=== PATIENT | female | born 1975 | race Caucasian/White ===

== ENCOUNTER 2021-10-15 08:00 | Outpatient (RCR) | payer OTHER, SELFPAY ==
[2021-09-24 08:15] VITALS: BP 161/92; PULSE 87; RESP 18; TEMP 35.9; BMI 36.1
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
[2021-10-01 07:55] VITALS: BP 146/114; PULSE 111; RESP 20; TEMP 37; BMI 36.1
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
[2021-10-08 08:48] VITALS: BP 151/101; PULSE 95; RESP 20; TEMP 36.2; BMI 36.1
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
[2021-10-15 08:03] VITALS: BP 148/95; PULSE 92; RESP 16; TEMP 36.3; BMI 36.1
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
== END 2021-10-15 23:59 ==
LOC: WC 08:00
PROVIDERS: PCP Family Medicine; Visit Provider Surgery
DX: L97.212 Non-pressure chronic ulcer of right calf with fat layer exposed (principal); L08.9 Local infection of the skin and subcutaneous tissue, unspecified; S81.831S Puncture wound without foreign body, right lower leg, sequela; V86.55XS Driver of 3- or 4- wheeled all-terrain vehicle (ATV) injured in nontraffic accident, sequela; D86.9 Sarcoidosis, unspecified; K58.9 Irritable bowel syndrome, unspecified; K21.9 Gastro-esophageal reflux disease without esophagitis; Z79.51 Long term (current) use of inhaled steroids; Z79.899 Other long term (current) drug therapy; E66.9 Obesity, unspecified; Z68.36 Body mass index [BMI] 36.0-36.9, adult; Z87.891 Personal history of nicotine dependence
CPT/HCPCS: 11042; 87070; 87075; 87205; 99213; G0463

== ENCOUNTER 2021-11-12 08:00 | Outpatient (RCR) | payer OTHER, SELFPAY ==
[2021-10-16 00:37] VITALS: BP 148/95; PULSE 92; RESP 16; TEMP 36.3; BMI 36.1
[2021-10-22 08:05] VITALS: BP 158/91; PULSE 89; RESP 18; TEMP 35.8; BMI 36.1
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
[2021-10-29 08:06] VITALS: BP 153/91; PULSE 92; RESP 16; TEMP 36.8; BMI 36.1
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
[2021-11-05 08:04] VITALS: BP 154/93; PULSE 74; TEMP 35.9; BMI 36.1
--- NOTE | 2021-11-05 09:05 | PCM.WC.HP ---
History of Present Illness Date of Service: 11/05/21 Chief Complaint: Traumatic penetrating wound to the right medial calf History of Wound: This is a 46-year-old generally healthy 46-year-old female who was involved in a [place] lag[place] accident approximately 2 months prior to initial presentation. She sustained a penetrating injury to the medial aspect of her right calf. She had been using Bactroban topically, but the wound failed to heal appropriately. She had recently been placed on a course of oral clindamycin. X-rays at the time of her injury were said to be negative. [facility] Medical History GERD (gastroesophageal reflux disease) Irritable bowel syndrome Non-pressure chronic ulcer of right calf with fat layer exposed Sarcoidosis Traumatic open wound of right lower leg with delayed healing Wound infection, posttraumatic Home Medications albuterol mcg INHALATION PRN PRN 09/24/21 [History Last Taken Unknown] carbidopa-levodopa QHS 09/24/21 [History Last Taken Unknown] citalopram [Celexa] 20 mg PO DAILY 09/24/21 [History Last Taken Unknown] fluticasone propion-salmeterol [Advair HFA] 2 puff INHALATION Q12H 09/24/21 [History Last Taken Unknown] Allergy/AdvReac Type Severity Reaction Status Date / Time hydromorphone [From Dilaudid] Allergy Hives Verified 09/24/21 08:39 Surgical History no surgical history Social History Smoking Status: Former smoker Vital Signs Vital Signs Vital Signs: 11/05/21 08:04 Temperature 96.6 F L Temperature Source Temporal Pulse Rate 74 Blood Pressure 154/93 H Blood Pressure Mean 113 Blood Pressure Source Monitor Blood Pressure Position Sitting Blood Pressure Location Left Arm Weight Weight: 245 lb 2.12 oz Body Mass Index (BMI) 36.1 Physical Exam Const alert, oriented x3, no apparent distress and well nourished General Appearance: cooperative and well developed Orientation / Consciousness: awake, oriented to person, oriented to place and oriented to time HEENT normocephalic and head/scalp atraumatic Head and Scalp: normal to inspection, normocephalic and atraumatic External Ear: external ears normal Eyes PERRL and EOMs intact bilaterally General Eye: normal appearance of both eyes Resp normal respiratory effort, normal air movement, no retractions and no use of accessory muscles Effort and Inspection: able to speak in complete sentences Extremity no calf tenderness General Extremity: Negative for clubbing or cyanosis Skin Wound Narrative: The wound on the right medial calf persists. A small amount of associated erythema persists. Dimensions are documented elsewhere. There is a moderate amount of bioburden. No significant swelling is noted in the lower extremities. Neuro oriented x3, CN's II-XII intact bilaterally and moves all extremities Sensorium / Orientation: awake, alert, oriented to person, oriented to place and oriented to time Psych Appearance: grossly normal and appropriate Attitude: calm Activity / Motor Behavior: appropriate eye contact Speech: normal speech Mood & Affect: euthymic mood Thought Process: normal thought process Thought Content: normal thought content Attention / Concentration: attention grossly intact Debridement Note Debridement Note Wound debrided: Right medial calf Laterality: Right Type of Debridement: Excisional debridement Anesthesia Used: 5% Lidocaine Gel Depth: Down to and including healthy tissue and in the subcutaneous layer Percentage of wound debrided: 100 Instrument Used: 3mm curette Tissue Removed: Bioburden Severity: Fat Layer Exposed Amount of bleeding with debridement: Mild Bleeding Controlled with: Compression and gauze Patient tolerated procedure: Patient tolerated procedure well Post-Debridement Measurements and Additional Note: Post-Debridement Measurements/Treatment - Nurse 1 - General Ulcer Assessment Start: 10/22/21 08:05 Freq: Status: Active Protocol: SRAVAN.SENA Activity Type Activity Date Activity User E-Sign Co-Sign Detail Recorded Client Recorded Date Recorded By Document 10/22/21 08:05 DL [id number] 10/22/21 08:08 DL Document 10/29/21 08:06 BM [id number] 10/29/21 08:08 BMF Document 11/05/21 08:04 KR [id number] 11/05/21 08:08 KR 10/22/21 10/29/21 11/05/21 08:05 08:06 08:04 - Today's Visit Information Type of service Follow-up Visit Follow-up Visit Follow-up Visit (Physician/HEALTH INFORMATION TECH (Physician/HEALTH INFORMATION TECH (Physician/HEALTH INFORMATION TECH ) ) ) Arrival Mode Ambulatory Ambulatory Ambulatory Transfer Assistance None None Patient Identification Verified (Name & Yes Yes Yes ) Patient Requires Transmission-Based No No Precautions Height and Weight Body Mass Index (BMI) 36.1 36.1 36.1 BMI Classification Obese Obese Obese Vital Signs Temperature (97.8 F-99.1 F) 96.5 F L 98.2 F 96.6 F L Temperature Source Temporal Temporal Temporal Pulse Rate (60-100) 89 92 74 Pulse Location Monitor Monitor Monitor Respiratory Rate (12-18) 18 16 Respiratory rate source Observation Observation Oxygen Delivery Method Room Air Blood Pressure (90/60-120/80) 158/91 H 153/91 H 154/93 H Blood Pressure Mean 113 111 113 Source Monitor Monitor Monitor Position Sitting Sitting Blood Pressure Location Right Arm Left Arm History Since Last Visit- (Skip if this is Patient's initial visit) Have you changed medications since your No No No last visit? Any new allergies or adverse reactions No No No Had a fall/change in ADL's that may No No No increase risk of falls Signs or symptoms of abuse and/or No No No neglect since last visit Have you been in the hospital since your No No No last visit? Has dressing in place as prescribed Yes Yes Yes Has compression in place as prescribed Yes Yes Yes Has offloadiing in place as prescribed N/A N/A N/A Experienced any changes in pain level or No No No management Left Footwear Regular Shoe Regular Shoe Right Footwear Regular Shoe Regular Shoe Pain Scale: 0-10 Numeric Is Patient Pain Free? Yes Yes WC - Nurse 1 - General Ulcer Measurement Start: 10/22/21 08:05 Freq: Status: Active Protocol: Activity Type Activity Date Activity User E-Sign Co-Sign Detail Recorded Client Recorded Date Recorded By Document 10/22/21 08:05 DL [id number] 10/22/21 08:08 DL Document 10/29/21 08:06 BM [id number] 10/29/21 08:08 BMF Document 11/05/21 08:04 KR [id number] 11/05/21 08:08 KR 10/22/21 10/29/21 11/05/21 08:05 08:06 08:04 Wound Center Nurse 1 #1 R Med LE -Combined with other wound No -Current Size (cm) - Length 2.4 2.4 2.3 -Current Size (cm) - Width 0.6 1.4 0.7 -Current Size (cm) - Depth 0.3 0.2 0.2 -Total Square Cm 1.44 3.36 1.61 -Photo Taken No No -Epithelialization None Present -Tunneling No -Undermining/Tunneling No -Circular Undermining No -Exudate Amt Small Medium Small -Exudate Type Serosanguineous Serosanguineous Serosanguineous -Wound Margin Distinct, Distinct, Distinct, Outline Outline Outline Attached Attached Attached -Granulation Amt Small (1-33%) Small (1-33%) Medium (34-66%) -Granulation Quality [place] -Slough/Fibrin Yes -Necrosis Amt Large (67-100%) Medium (34-66%) Medium (34-66%) -Necrotic Tissue Type Adherent Slough Adherent Slough Adherent Slough -Structure Exposed N/A -Texture (Coret[place]-wound Skin Appearance) Excoriation, Assessed, Assessed, Scarring Scarring Scarring -Moisture ([place]oret[place]-wound Skin Appearance) Dry/Scaly Assessed,Dry/ Assessed,Dry/ Scaly Scaly -Color ([place]oret[place]-wound Skin Appearance) No Abnormality Assessed No Abnormality, Assessed -Temperature ([place]-wound Skin No Abnormality No Abnormality No Abnormality Appearance) (Pt Warm) (Pt Warm) (Pt Warm) -Tenderness on Palpation ([place]-wound No No No Skin Appearance) -Ulcer Cleansing Rinsed/ Rinsed/ Rinsed/ Irrigated with Irrigated with Irrigated with Saline Saline Saline -Foul Odor after Cleansing No No -Anesthetic Used 4% Lidocaine 5% Lidocaine 4% Lidocaine Solution Gel Solution Lower Limb Edema Present Yes Right Calf (cm) 42 41.3 46.5 Right Ankle (cm) 21 22.5 24.7 WC - Nurse 2 - General Ulcer CM Notes Start: 10/22/21 08:05 Freq: Status: Active Protocol: Activity Type Activity Date Activity User E-Sign Co-Sign Detail Recorded Client Recorded Date Recorded By Document 10/22/21 08:25 PL [id number] 10/22/21 08:27 PL Document 10/29/21 08:34 PL [id number] 10/29/21 08:36 PL 10/22/21 10/29/21 08:25 08:34 Wound Center Nurse 2 #1 R Med LE -Time 08:15 08:19 -Correct Patient Yes Yes -Correct Side, Site, Position Yes Yes -Correct Procedure Yes Yes -Procedure Performed Yes Yes -Type of Procedure Debridement Debridement -Clinical Debridement Subcutaneous Subcutaneous -Tissue Removed Subcutaneous Subcutaneous -Post Debridement (cm) - Length 2.4 2.4 -Post Debridement (cm) - Width 0.6 1.4 -Post Debridement (cm) - Depth 0.3 0.2 -Total Square (Post) (cm) 1.44 3.36 -Area of Debridement (cm) - Length 2.4 2.4 -Area of Debridement (cm) - Width 0.6 1.4 -Total Square (Area) (cm) 1.44 3.36 -Tunneling No No -Undermining/Tunneling No No -Circular Undermining No No -Wound/Ulcer Outcome Not Healed Not Healed -Ulcer Cleansing Rinsed/ Rinsed/ Irrigated with Irrigated with Saline Saline -Foul Odor after Cleansing No No -Bioengineered Tissue No No -Bleeding Controlled with Pressure Pressure -Treatment Response Procedure Procedure Tolerated Well Tolerated Well -Debridement - Subq, 1st 20sq cm Yes Yes - Nurse 3 - General Ulcer D/C NN Start: 10/22/21 08:05 Freq: Status: Active Protocol: Activity Type Activity Date Activity User E-Sign Co-Sign Detail Recorded Client Recorded Date Recorded By Document 10/22/21 08:38 [facility] [id number] 10/22/21 08:41 [facility] Document 10/29/21 08:29 [facility] [id number] 10/29/21 08:30 [facility] 10/22/21 10/29/21 08:38 08:29 Wound Care Nurse 3 #1 R Med LE -Ulcer Cleansing Rinsed/ Rinsed/ Irrigated with Irrigated with Saline Saline -Foul Odor after Cleansing No No -Primary Dressing Applied Other C Hydrogel ($), Other -Other Dressing promogran promogran -Primary Dressing Covered/Secured with Dry Gauze & Dry Gauze & Roll Gauze, Roll Gauze, Secured with Secured with Tape Tape -Other Covering drsg per mw rn Right -Other pts own applied pts own compression single layer applied tubi Treatment Response Procedure Procedure Tolerated Well Tolerated Well Pain Scale: 0-10 Numeric Is Patient Pain Free? Yes Yes - Visit Discharge Discharge Condition Stable Stable Ambulatory Status Ambulatory Ambulatory Transportation Private Auto Private Auto Assessment/Plan Assessment/Plan (1) Traumatic open wound of right lower leg with delayed healing: CODE(S): S81.801D - Unspecified open wound, right lower leg, subsequent encounter (2) Non-pressure chronic ulcer of right calf with fat layer exposed: CODE(S): L97.212 - Non-pressure chronic ulcer of right calf with fat layer exposed (3) GERD (gastroesophageal reflux disease): CODE(S): K21.9 - Gastro-esophageal reflux disease without esophagitis (4) Wound infection, posttraumatic: CODE(S): T14.8XXA - Other injury of unspecified body region, initial encounter; L08.9 - Local infection of the skin and subcutaneous tissue, unspecified (5) Irritable bowel syndrome: CODE(S): K58.9 - Irritable bowel syndrome without diarrhea (6) Sarcoidosis: CODE(S): D86.9 - Sarcoidosis, unspecified PLAN: This is a 46-year-old generally healthy white female who sustained a traumatic injury to her right medial calf approximately 2 months prior to her initial presentation. The wound failed to heal appropriately. Because the patient indicated that the wound bed generally appeared dry with each dressing change, we implemented the use of collagen hydrogel in association with the Promogran which was applied topically on a daily basis. This is to be continued. She has been instructed in appropriate means of application. It should be noted that the patient recently vacationed in [facility], but forgot to take her oral antibiotic with her on the trip. As result, she has not been taking the Keflex 500 mg p.o. twice daily as prescribed empirically on her last visit. This is to be resumed. In addition, upon her return to [place], the patient forgot her collagen hydrogel, leaving it in [place]. As result, she has not been applying collagen hydrogel in association with her Promogran each day. Patient has been provided collagen hydrogel today, and the combination of collagen hydrogel and Promogran is to be resumed topically on a daily basis henceforth. We had considered the use of a skin substitute, but preauthorization was denied by the patient's insurance company. Wound cultures have been obtained by swab, for both aerobic and anaerobic bacterial growth. Results were negative. As mentioned, because of the persisting periwound erythema, suspicious for cellulitis, we are empirically treating the patient with Keflex 500 mg p.o. twice daily for 1 week. The patient is to return in 1 week for reassessment. Total time: 29 minutes
[2021-11-12 08:02] VITALS: BP 158/79; PULSE 90; RESP 16; BMI 36.1
--- NOTE | 2021-11-12 09:34 | HP.PCM_ITS ---
History of Present Illness Date of Service: 11/12/21 Chief Complaint: Traumatic penetrating wound to the right medial calf History of Wound: This is a 46-year-old generally healthy 46-year-old female who was involved in a [employer] laguna accident approximately 2 months prior to initial presentation. She sustained a penetrating injury to the medial aspect of her right calf. She had been using Bactroban topically, but the wound failed to heal appropriately. She had recently been placed on a course of oral clindamycin. X-rays at the time of her injury were said to be negative. [facility] Medical History GERD (gastroesophageal reflux disease) Irritable bowel syndrome Non-pressure chronic ulcer of right calf with fat layer exposed Sarcoidosis Traumatic open wound of right lower leg with delayed healing Wound infection, posttraumatic Home Medications albuterol mcg INHALATION PRN PRN 09/24/21 [History Last Taken Unknown] carbidopa-levodopa QHS 09/24/21 [History Last Taken Unknown] citalopram [Celexa] 20 mg PO DAILY 09/24/21 [History Last Taken Unknown] fluticasone propion-salmeterol [Advair HFA] 2 puff INHALATION Q12H 09/24/21 [History Last Taken Unknown] Allergy/AdvReac Type Severity Reaction Status Date / Time hydromorphone [From Dilaudid] Allergy Hives Verified 09/24/21 08:39 Surgical History no surgical history Social History Smoking Status: Former smoker Vital Signs Vital Signs Vital Signs: 11/12/21 08:02 Pulse Rate 90 Respiratory Rate 16 Blood Pressure 158/79 H Blood Pressure Mean 105 Blood Pressure Source Monitor Blood Pressure Position Sitting Blood Pressure Location Left Arm Oxygen Delivery Method Room Air Weight Weight: 245 lb 2.12 oz Body Mass Index (BMI) 36.1 Physical Exam Const alert, oriented x3, no apparent distress and well nourished General Appearance: cooperative and well developed Orientation / Consciousness: awake, oriented to person, oriented to place and oriented to time HEENT normocephalic and head/scalp atraumatic Head and Scalp: normal to inspection, normocephalic and atraumatic External Ear: external ears normal Eyes PERRL and EOMs intact bilaterally General Eye: normal appearance of both eyes Resp normal respiratory effort, normal air movement, no retractions and no use of accessory muscles Effort and Inspection: able to speak in complete sentences Extremity no calf tenderness General Extremity: Negative for clubbing or cyanosis Skin Wound Narrative: No swelling or edema are noted in the patient's right lower extremity. Ulceration on the right medial calf is smaller, demonstrating improvement. There is no sign of infection or cellulitis. There is a small amount of bioburden. Dimensions are documented elsewhere. Neuro oriented x3, CN's II-XII intact bilaterally and moves all extremities Sensorium / Orientation: awake, alert, oriented to person, oriented to place and oriented to time Psych Appearance: grossly normal and appropriate Attitude: calm Activity / Motor Behavior: appropriate eye contact Speech: normal speech Mood & Affect: euthymic mood Thought Process: normal thought process Thought Content: normal thought content Attention / Concentration: attention grossly intact Debridement Note Debridement Note Wound debrided: Right medial calf Laterality: Right Type of Debridement: Excisional debridement Anesthesia Used: 5% Lidocaine Gel Depth: Down to and including healthy tissue and in the subcutaneous layer Percentage of wound debrided: 100 Instrument Used: 3mm curette Tissue Removed: Bioburden Severity: Fat Layer Exposed Amount of bleeding with debridement: Mild Bleeding Controlled with: Compression and gauze Patient tolerated procedure: Patient tolerated procedure well Post-Debridement Measurements and Additional Note: Post-Debridement Measurements/Treatment - Nurse 1 - General Ulcer Assessment Start: 10/22/21 08:05 Freq: Status: Active Protocol: JODY Activity Type Activity Date Activity User E-Sign Co-Sign Detail Recorded Client Recorded Date Recorded By Document 10/22/21 08:05 DL [id number] 10/22/21 08:08 DL Document 10/29/21 08:06 [facility] [id number] 10/29/21 08:08 BMF Document 11/05/21 08:04 KR [id number] 11/05/21 08:08 KR Document 11/12/21 08:02 BM [id number] 11/12/21 08:06 BM 10/22/21 10/29/21 11/05/21 08:05 08:06 08:04 - Today's Visit Information Type of service Follow-up Visit Follow-up Visit Follow-up Visit (Physician/[employer] (Physician/[employer] (Physician/[employer] ) ) ) Arrival Mode Ambulatory Ambulatory Ambulatory Transfer Assistance None None Patient Identification Verified (Name & Yes Yes Yes ) Patient Requires Transmission-Based No No Precautions Height and Weight Body Mass Index (BMI) 36.1 36.1 36.1 BMI Classification Obese Obese Obese Vital Signs Temperature (97.8 F-99.1 F) 96.5 F L 98.2 F 96.6 F L Temperature Source Temporal Temporal Temporal Pulse Rate (60-100) 89 92 74 Pulse Location Monitor Monitor Monitor Respiratory Rate (12-18) 18 16 Respiratory rate source Observation Observation Oxygen Delivery Method Room Air Blood Pressure (90/60-120/80) 158/91 H 153/91 H 154/93 H Blood Pressure Mean 113 111 113 Source Monitor Monitor Monitor Position Sitting Sitting Blood Pressure Location Right Arm Left Arm History Since Last Visit- (Skip if this is Patient's initial visit) Have you changed medications since your No No No last visit? Any new allergies or adverse reactions No No No Had a fall/change in ADL's that may No No No increase risk of falls Signs or symptoms of abuse and/or No No No neglect since last visit Have you been in the hospital since your No No No last visit? Has dressing in place as prescribed Yes Yes Yes Has compression in place as prescribed Yes Yes Yes Has offloadiing in place as prescribed N/A N/A N/A Experienced any changes in pain level or No No No management Left Footwear Regular Shoe Regular Shoe Right Footwear Regular Shoe Regular Shoe Pain Scale: 0-10 Numeric Is Patient Pain Free? Yes Yes 11/12/21 08:02 - Today's Visit Information Type of service Follow-up Visit (Physician/[employer] ) Arrival Mode Ambulatory Transfer Assistance None Patient Identification Verified (Name & Yes ) Patient Requires Transmission-Based No Precautions Height and Weight Body Mass Index (BMI) 36.1 BMI Classification Obese Vital Signs Temperature (97.8 F-99.1 F) Temperature Source Pulse Rate (60-100) 90 Pulse Location Monitor Respiratory Rate (12-18) 16 Respiratory rate source Observation Oxygen Delivery Method Room Air Blood Pressure (90/60-120/80) 158/79 H Blood Pressure Mean 105 Source Monitor Position Sitting Blood Pressure Location Left Arm History Since Last Visit- (Skip if this is Patient's initial visit) Have you changed medications since your No last visit? Any new allergies or adverse reactions No Had a fall/change in ADL's that may No increase risk of falls Signs or symptoms of abuse and/or No neglect since last visit Have you been in the hospital since your No last visit? Has dressing in place as prescribed Yes Has compression in place as prescribed No Has offloadiing in place as prescribed N/A Experienced any changes in pain level or No management Left Footwear Regular Shoe Right Footwear Regular Shoe Pain Scale: 0-10 Numeric Is Patient Pain Free? Yes WC - Nurse 1 - General Ulcer Measurement Start: 10/22/21 08:05 Freq: Status: Active Protocol: Activity Type Activity Date Activity User E-Sign Co-Sign Detail Recorded Client Recorded Date Recorded By Document 10/22/21 08:05 DL [id number] 10/22/21 08:08 DL Document 10/29/21 08:06 BM [id number] 10/29/21 08:08 BMF Document 11/05/21 08:04 KR [id number] 11/05/21 08:08 KR Document 11/12/21 08:02 BMF [id number] 11/12/21 08:06 BMF 10/22/21 10/29/21 11/05/21 08:05 08:06 08:04 Wound Center Nurse 1 #1 R Med LE -Combined with other wound No -Current Size (cm) - Length 2.4 2.4 2.3 -Current Size (cm) - Width 0.6 1.4 0.7 -Current Size (cm) - Depth 0.3 0.2 0.2 -Total Square Cm 1.44 3.36 1.61 -Photo Taken No No -Epithelialization None Present -Tunneling No -Undermining/Tunneling No -Circular Undermining No -Exudate Amt Small Medium Small -Exudate Type Serosanguineous Serosanguineous Serosanguineous -Wound Margin Distinct, Distinct, Distinct, Outline Outline Outline Attached Attached Attached -Granulation Amt Small (1-33%) Small (1-33%) Medium (34-66%) -Granulation Quality [place] -Slough/Fibrin Yes -Necrosis Amt Large (67-100%) Medium (34-66%) Medium (34-66%) -Necrotic Tissue Type Adherent Slough Adherent Slough Adherent Slough -Structure Exposed N/A -Texture (Coretta-wound Skin Appearance) Excoriation, Assessed, Assessed, Scarring Scarring Scarring -Moisture (Coretta-wound Skin Appearance) Dry/Scaly Assessed,Dry/ Assessed,Dry/ Scaly Scaly -Color (Coretta-wound Skin Appearance) No Abnormality Assessed No Abnormality, Assessed -Temperature (Coretta-wound Skin No Abnormality No Abnormality No Abnormality Appearance) (Pt Warm) (Pt Warm) (Pt Warm) -Tenderness on Palpation (Coretta-wound No No No Skin Appearance) -Ulcer Cleansing Rinsed/ Rinsed/ Rinsed/ Irrigated with Irrigated with Irrigated with Saline Saline Saline -Foul Odor after Cleansing No No -Anesthetic Used 4% Lidocaine 5% Lidocaine 4% Lidocaine Solution Gel Solution Lower Limb Edema Present Yes Right Calf (cm) 42 41.3 46.5 Right Ankle (cm) 21 22.5 24.7 11/12/21 08:02 Wound Center Nurse 1 #1 R Med LE -Combined with other wound No -Current Size (cm) - Length 2.3 -Current Size (cm) - Width 1.3 -Current Size (cm) - Depth 0.2 -Total Square Cm 2.99 -Photo Taken No -Epithelialization Small 1-33% -Tunneling No -Undermining/Tunneling No -Circular Undermining No -Exudate Amt Medium -Exudate Type Serosanguineous -Wound Margin Distinct, Outline Attached -Granulation Amt Medium (34-66%) -Granulation Quality [place] -Slough/Fibrin Yes -Necrosis Amt Medium (34-66%) -Necrotic Tissue Type Adherent Slough -Structure Exposed -Texture (Coretta-wound Skin Appearance) Assessed, Scarring -Moisture (Coretta-wound Skin Appearance) Assessed -Color (Coretta-wound Skin Appearance) Assessed -Temperature (Coretta-wound Skin No Abnormality Appearance) (Pt Warm) -Tenderness on Palpation (Coretta-wound No Skin Appearance) -Ulcer Cleansing Rinsed/ Irrigated with Saline -Foul Odor after Cleansing No -Anesthetic Used 5% Lidocaine Gel Lower Limb Edema Present Yes Right Calf (cm) 44.5 Right Ankle (cm) 22.5 WC - Nurse 2 - General Ulcer CM Notes Start: 10/22/21 08:05 Freq: Status: Active Protocol: Activity Type Activity Date Activity User E-Sign Co-Sign Detail Recorded Client Recorded Date Recorded By Document 10/22/21 08:25 PL [id number] 10/22/21 08:27 PL Document 10/29/21 08:34 PL [id number] 10/29/21 08:36 PL Document 11/05/21 09:24 PL [id number] 11/05/21 09:25 PL Document 11/12/21 09:17 PL [id number] 11/12/21 09:18 PL 10/22/21 10/29/21 11/05/21 08:25 08:34 09:24 Wound Center Nurse 2 #1 R Med LE -Time 08:15 08:19 08:25 -Correct Patient Yes Yes Yes -Correct Side, Site, Position Yes Yes Yes -Correct Procedure Yes Yes Yes -Procedure Performed Yes Yes Yes -Type of Procedure Debridement Debridement Debridement -Clinical Debridement Subcutaneous Subcutaneous Subcutaneous -Tissue Removed Subcutaneous Subcutaneous Subcutaneous -Post Debridement (cm) - Length 2.4 2.4 2.3 -Post Debridement (cm) - Width 0.6 1.4 0.7 -Post Debridement (cm) - Depth 0.3 0.2 0.2 -Total Square (Post) (cm) 1.44 3.36 1.61 -Area of Debridement (cm) - Length 2.4 2.4 2.3 -Area of Debridement (cm) - Width 0.6 1.4 0.7 -Total Square (Area) (cm) 1.44 3.36 1.61 -Tunneling No No No -Undermining/Tunneling No No No -Circular Undermining No No No -Wound/Ulcer Outcome Not Healed Not Healed Not Healed -Ulcer Cleansing Rinsed/ Rinsed/ Rinsed/ Irrigated with Irrigated with Irrigated with Saline Saline Saline -Foul Odor after Cleansing No No No -Bioengineered Tissue No No No -Bleeding Controlled with Pressure Pressure -Treatment Response Procedure Procedure Tolerated Well Tolerated Well -Debridement - Subq, 1st 20sq cm Yes Yes Yes 11/12/21 09:17 Wound Center Nurse 2 #1 R Med LE -Time 08:23 -Correct Patient Yes -Correct Side, Site, Position Yes -Correct Procedure Yes -Procedure Performed Yes -Type of Procedure Debridement -Clinical Debridement Subcutaneous -Tissue Removed Subcutaneous -Post Debridement (cm) - Length 2.3 -Post Debridement (cm) - Width 1.3 -Post Debridement (cm) - Depth 0.2 -Total Square (Post) (cm) 2.99 -Area of Debridement (cm) - Length 2.3 -Area of Debridement (cm) - Width 1.3 -Total Square (Area) (cm) 2.99 -Tunneling No -Undermining/Tunneling No -Circular Undermining No -Wound/Ulcer Outcome Not Healed -Ulcer Cleansing Rinsed/ Irrigated with Saline -Foul Odor after Cleansing No -Bioengineered Tissue No -Bleeding Controlled with Pressure -Treatment Response Procedure Tolerated Well -Debridement - Subq, 1st 20sq cm Yes - Nurse 3 - General Ulcer D/C NN Start: 10/22/21 08:05 Freq: Status: Active Protocol: Activity Type Activity Date Activity User E-Sign Co-Sign Detail Recorded Client Recorded Date Recorded By Document 10/22/21 08:38 [facility] [id number] 10/22/21 08:41 [facility] Document 10/29/21 08:29 [facility] [id number] 10/29/21 08:30 [facility] Document 11/05/21 09:08 [id number] 11/05/21 09:08 KR Document 11/12/21 08:31 [facility] [id number] 11/12/21 08:32 [facility] 10/22/21 10/29/21 11/05/21 08:38 08:29 09:08 Wound Care Nurse 3 #1 R Med LE -Ulcer Cleansing Rinsed/ Rinsed/ Rinsed/ Irrigated with Irrigated with Irrigated with Saline Saline Saline -Foul Odor after Cleansing No No -Primary Dressing Applied Other C Hydrogel ($), C Hydrogel ($) Other -Other Dressing promogran promogran -Primary Dressing Covered/Secured with Dry Gauze & Dry Gauze & Dry Gauze, Roll Gauze, Roll Gauze, Secured with Secured with Secured with Tape Tape Tape -Other Covering drsg per mw rn Right -Other pts own applied pts own compression single layer applied tubi Treatment Response Procedure Procedure Tolerated Well Tolerated Well Pain Scale: 0-10 Numeric Is Patient Pain Free? Yes Yes Yes WC - Visit Discharge Discharge Condition Stable Stable Stable Ambulatory Status Ambulatory Ambulatory Ambulatory Transportation Private Auto Private Auto Private Auto Accompanied by self 11/12/21 08:31 Wound Care Nurse 3 #1 R Med LE -Ulcer Cleansing Rinsed/ Irrigated with Saline -Foul Odor after Cleansing No -Primary Dressing Applied Other -Other Dressing promogran, hydrogel -Primary Dressing Covered/Secured with Dry Gauze, Secured with Tape -Other Covering Right -Other own tubi applied Treatment Response Procedure Tolerated Well Pain Scale: 0-10 Numeric Is Patient Pain Free? Yes WC - Visit Discharge Discharge Condition Stable Ambulatory Status Ambulatory Transportation Private Auto Accompanied by Assessment/Plan Assessment/Plan (1) Traumatic open wound of right lower leg with delayed healing: CODE(S): S81.801D - Unspecified open wound, right lower leg, subsequent encounter (2) Non-pressure chronic ulcer of right calf with fat layer exposed: CODE(S): L97.212 - Non-pressure chronic ulcer of right calf with fat layer exposed (3) Wound infection, posttraumatic: CODE(S): T14.8XXA - Other injury of unspecified body region, initial encounter; L08.9 - Local infection of the skin and subcutaneous tissue, unspecified (4) GERD (gastroesophageal reflux disease): CODE(S): K21.9 - Gastro-esophageal reflux disease without esophagitis (5) Sarcoidosis: CODE(S): D86.9 - Sarcoidosis, unspecified (6) Irritable bowel syndrome: CODE(S): K58.9 - Irritable bowel syndrome without diarrhea PLAN: This is a 46-year-old generally healthy white female who sustained a traumatic injury to her right medial calf approximately 2 months prior to her initial presentation. The wound failed to heal appropriately. Because the patient indicated that the wound bed generally appeared dry with each dressing change, we implemented the use of collagen hydrogel in association with the Promogran which was applied topically on a daily basis. This is to be continued. She has been instructed in appropriate means of application. We had considered the use of a skin substitute, but preauthorization was denied by the patient's insurance company. Wound cultures have been obtained by swab, for both aerobic and anaerobic bacterial growth. Results were negative. As mentioned, because of the persisting periwound erythema, suspicious for cellulitis, we empirically treated the patient with Keflex 500 mg p.o. twice daily for 1 week, which is now nearly complete. The erythema and suspected cellulitic changes adjacent to the ulceration have resolved. The patient is progressing well, and her ulceration is diminishing in size. The patient is to return in 1 week for reassessment. Total time: 28 minutes
== END 2021-11-15 23:59 ==
LOC: WC 08:00
PROVIDERS: PCP Family Medicine; Visit Provider Surgery
DX: L97.212 Non-pressure chronic ulcer of right calf with fat layer exposed (principal); L08.9 Local infection of the skin and subcutaneous tissue, unspecified; S81.831S Puncture wound without foreign body, right lower leg, sequela; V86.55XS Driver of 3- or 4- wheeled all-terrain vehicle (ATV) injured in nontraffic accident, sequela; D86.9 Sarcoidosis, unspecified; K58.9 Irritable bowel syndrome, unspecified; K21.9 Gastro-esophageal reflux disease without esophagitis; E66.9 Obesity, unspecified; Z68.36 Body mass index [BMI] 36.0-36.9, adult; Z79.51 Long term (current) use of inhaled steroids; Z79.899 Other long term (current) drug therapy; Z87.891 Personal history of nicotine dependence
CPT/HCPCS: 11042; 87070; 87075; 87205

== ENCOUNTER 2021-12-03 08:00 | Outpatient (RCR) | payer OTHER, SELFPAY ==
[2021-11-16 00:33] VITALS: BP 158/79; PULSE 90; RESP 16; TEMP 35.9; BMI 36.1
[2021-11-19 08:03] VITALS: BP 137/87; PULSE 84; RESP 18; TEMP 37; BMI 36.1
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
[2021-12-03 08:06] VITALS: BP 156/88; PULSE 62; RESP 16; TEMP 36.3; BMI 36.1
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
== END 2021-12-03 08:28 | disposition home or self-care (01) ==
LOC: WC 08:00
PROVIDERS: PCP Family Medicine; Visit Provider Surgery
DX: L97.212 Non-pressure chronic ulcer of right calf with fat layer exposed (principal); K58.9 Irritable bowel syndrome, unspecified; D86.9 Sarcoidosis, unspecified; K21.9 Gastro-esophageal reflux disease without esophagitis; Z87.891 Personal history of nicotine dependence; S81.831S Puncture wound without foreign body, right lower leg, sequela; V86.0 Driver of special all-terrain or other off-road motor vehicle injured in traffic accident; Z79.899 Other long term (current) drug therapy
CPT/HCPCS: 11042; 99213; G0463

== ENCOUNTER 2024-08-24 13:36 | Emergency (ER) | payer OTHER, SELFPAY ==
[2024-08-24 13:37] VITALS: BP 227/143; PULSE 123; RESP 20; TEMP 36.6; O2SAT 100; BMI 34.2
[2024-08-24 13:52] VITALS: BP 186/106; PULSE 112
--- NOTE | 2024-08-24 14:06 | EKG12_ITS ---
Test Reason : CP Blood Pressure : / mmHG Vent. Rate : 113 BPM Atrial Rate : 113 BPM P-R Int : 146 ms QRS Dur : 078 ms QT Int : 328 ms P-R-T Axes : 063 -14 065 degrees QTc Int : 449 ms Sinus tachycardia Nonspecific ST and T wave abnormality Abnormal ECG Confirmed by EVELINA GOODWIN, STANLEY ([id number]), photography editor JUSTYN CARLOS ([id number]) on 08/26/2024 2:05:02 PM Referred By: Lisandro Antunez Confirmed By:STANLEY HOYT MD
--- NOTE | 2024-08-24 14:09 | EDS_ITS ---
HPI History of Present Illness Chief Complaint: Hypertension Informant: patient Narrative Narrative: Very pleasant 49-year-old female presenting to the emergency room with the chief complaint of hypertension. Patient states that she used to take medication for hypertension. She states she has not been on it in recent memory she tells me that for the bout the past week she has been feeling flushed especially during the day. States she has been dealing with a lot of stress at work which has been aggravating her anxiety. She is on Celexa for the anxiety states she has been on that for many years. She notes that last week she discontinued her thyroid medication but is unsure of exactly what that was but states that it was low-dose. Over the past couple days she has started to feel some heart palpitations which got worse today. She asked the nurse at the [employer] supervisor's office to take her blood pressure and it was 240s over 140s. She called her doctor's office who would not see her for this and sent her to emergency. Patient states that she typically has tachycardia. She states that it is not uncommon for her to have heart rates of 100-110. [facility] Medical History Non-pressure chronic ulcer of right calf with fat layer exposed GERD (gastroesophageal reflux disease) Sarcoidosis Irritable bowel syndrome Wound infection, posttraumatic Traumatic open wound of right lower leg with delayed healing Home Medications ?Medication ?Instructions ?Recorded ?Last Taken ?Type citalopram 20 mg tablet (Celexa) 20 mg PO DAILY 09/24/21 Unknown History fluticasone propionate 45 2 puff inhalation Q12H 09/24/21 Unknown History mcg-salmeterol 21 mcg/actuation HFA inhaler (Advair HFA) amlodipine 5 mg-benazepril 10 mg 1 cap PO DAILY #30 caps 08/24/24 Unknown Rx capsule carbidopa 25 mg-levodopa 100 mg 1 - 2 tab PO QHS 08/24/24 Unknown History tablet tolterodine 4 mg capsule,extended 4 mg PO DAILY 08/24/24 Unknown History release 24 hr Allergy/AdvReac Type Severity Reaction Status Date / Time hydromorphone (From Dilaudid) Allergy Hives Verified 08/24/24 13:40 Social History Smoking Status: Unknown if ever smoked ROS ROS ED Constitutional Constitutional ED: Denies chills, fever(s) or weight loss Eyes Eyes: Denies change in vision or diplopia ENT ENT ED: Denies ear pain, rhinorrhea or sore throat Cardiovascular Cardiovascular: Reports palpitations and racing heartbeat; Denies chest pain or orthopnea Respiratory/Chest Respiratory/Chest: Denies cough, dyspnea or orthopnea Gastrointestinal Gastrointestinal: Denies abdominal pain, diarrhea, nausea or vomiting Genitourinary Genitourinary ED: Denies dysuria, hematuria or urinary frequency Musculoskeletal Musculoskeletal: Denies arthralgias or myalgias Integumentary Denies abscess or rash Neurologic Neurologic: Denies headache(s) or weakness Psychiatric Psychiatric: Reports anxiety; Denies depression, suicidal ideation or suicidal thoughts Endocrine Endocrinology: Denies polydipsia, polyphagia or polyuria Allergic/Immunologic Allergic/Immunologic ED: Denies mouth swelling, tongue swelling or urticaria EXAM Physical Exam Const Vital Signs: 08/24/24 13:37 08/24/24 13:52 08/24/24 13:54 Temperature 97.9 F Temperature Source Temporal Pulse Rate 123 H 112 H Respiratory Rate 20 H Respiratory Effort Normal Non-Labored Respiratory Pattern Normal Blood Pressure 227/143 H 186/106 H Blood Pressure Mean 171 132 Pulse Ox 100 Oxygen Delivery Method Room Air 08/24/24 15:19 Temperature Temperature Source Pulse Rate Respiratory Rate Respiratory Effort Respiratory Pattern Blood Pressure 177/109 H Blood Pressure Mean 131 Pulse Ox Oxygen Delivery Method Positive well nourished and well developed General Appearance ED: well developed and NAD HEENT Reports normocephalic, head/scalp atraumatic and moist mucous membranes Eyes PERRL and EOMs intact bilaterally Neck no lymphadenopathy, supple and no JVD Resp normal respiratory effort and clear to auscultation bilaterally Cardio regular rate, regular rhythm and no murmurs GI normal to inspection, nondistended, normoactive bowel sounds and non-tender Palpation: soft Back/Spine no CVA tenderness and normal ROM Extremity normal to inspection General Extremety ED: Negative for edema General Extremity: Negative for edema Neuro oriented x3 and CN's II-XII intact bilaterally Sensorium / Orientation: alert Motor Exam: strength 5/5 throughout Psych mental status grossly normal Mood & Affect: Negative for depressed or tearful Skin no rashes or lesions noted and no wounds MDM MDM MDM Narrative Medical decision making narrative: Differential diagnosis includes but not limited to hypertensive emergency urgency accelerated hypertension essential hypertension endorgan damage including cardiac and renal and liver dysfunction congestive heart failure Urinalysis with no proteinuria no obvious infection renal shows a creatinine of 0.85 normal electrolytes troponin is normal liver enzymes are within normal limits EKG is nonischemic my independent interpretation of the chest x-ray is normal mediastinal silhouette Without treatment the blood pressure has been fairly stable in the 1 70-1 80 systolic range with diastolics around 100-1 10. Patient is not 100% sure what medicine she was on in the past she thought it began with an M but her states it was losartan. We talked about different types of medications including beta-blockers ARB's and MEENA inhibitors calcium channel blockers and diuretics. I am going to start her on amlodipine-benazepril. I have asked that she follow-up with her primary care doctor in 1 week for blood pressure recheck. Patient to return if worsening or concerns History & Record Review Discussion w/independent historian: Patient Lab Data Attestation: I reviewed the patient's lab results. Labs: Laboratory Results - last 24 hr 08/24/24 08/24/24 14:00 14:40 WBC 11.1 H RBC 5.43 H Hgb 15.2 H Hct 45.9 MCV 84.5 MCH 28.0 MCHC 33.1 RDW Std Deviation 40.4 RDW Coeff of Frida 13.1 Plt Count 383 MPV 9.3 Immature Gran % (Auto) 0.500 Neut % (Auto) 83.4 H Lymph % (Auto) 9.4 L [place] % (Auto) 5.7 Eos % (Auto) 0.5 Baso % (Auto) 0.5 Absolute Neuts (auto) 9.3 H Absolute Lymphs (auto) 1.04 Nucleated RBC % 0 Sodium 138 Potassium 3.7 Chloride 106 Carbon Dioxide 23.0 Anion Gap 9 BUN 12 Creatinine 0.85 Estim Creat Clear Calc 101.13 Est GFR (MDRD) Af Amer 91 Est GFR (MDRD) Non-Af 75 BUN/Creatinine Ratio 14.1 Glucose 95 Calcium 9.7 Total Bilirubin 0.60 Direct Bilirubin 0.19 AST 10 L ALT 22 Alkaline Phosphatase 60 Troponin I High Sens < 3 L Total Protein 8.7 H Albumin 4.3 Globulin 4.4 H Urine Color Straw Urine Clarity Clear Urine pH 6.0 Ur Specific [place] 1.010 Urine Protein Negative Urine Glucose (UA) Normal Urine Ketones 15 H Urine Occult Blood Negative Urine Nitrite Negative Urine Bilirubin Negative Urine Urobilinogen Normal Ur Leukocyte Esterase Negative Urine RBC 0 SEEN Urine WBC 0 SEEN Ur Squamous Epith Cells 0-5 SEEN Urine Bacteria 0 SEEN Urine Mucus 0 SEEN Radiography Diagnostic Testing: Clinical Impression(s) from Imaging Studies Chest X-Ray 08/24/24 14:30 IMPRESSION: Normal x-ray examination of the chest. Electronically Signed: Alexander Acosta MD at 14:50 EDT , EKG Initial EKG: Attestation: I personally reviewed and interpreted this EKG as follows: Comments: Sinus tachycardia ventricular rate of 113 bpm Discharge Plan Triage Chief Complaint: Hypertension ED Provider: Lisandro Antunez Dx/Rx/DC Orders Clinical Impression: Accelerated hypertension Instructions: ED High Blood Pressure Hypertension Prescriptions: New amlodipine-benazepril 5-10 mg capsule 1 cap PO DAILY Qty: 30 0RF No Action citalopram [Celexa] 20 mg Tablet 20 mg PO DAILY fluticasone propion-salmeterol [Advair HFA] 45-21 mcg/actuation Hfa Aerosol Inhaler 2 puff INHALATION Q12H tolterodine 4 mg capsule,extended release 24hr 4 mg PO DAILY carbidopa-levodopa 25-100 mg tablet 1 - 2 tab PO QHS Primary Care Provider: Maryjo Antunez Referrals: Maryjo Antunez MD [Primary Care Provider] - 1 Week Print Language: Marshallese Disposition Disposition: Home, Self Care
[2024-08-24 14:25] LABS: Absolute Lymphocyte Count 1.04 X10^3/uL (0.83-4.51); Absolute Neutrophil Count 9.3 X10^3/uL (2.0-7.7); Basophil# 0.05 X10^3/uL; Basophil% 0.5 % (0-1); Eosinophil# 0.06 X10^3/uL; Eosinophils% 0.5 % (0-5); Hematocrit 45.9 % (37-47); Hemoglobin 15.2 g/dL (12.0-15.0); Lymphocyte # 1.04 X10^3/ul (0.83-4.51); Lymphocyte % 9.4 % (19-41); Mean Corp Hgb Conc 33.1 g/dL (32-36); Mean Corpuscular Volume 84.5 fL (81-99); Mean Platelet Vol. 9.3 fl (6.2-12.0); Monocyte# 0.63 X10^3/uL; Monocyte% 5.7 % (0-10); NRBC Flagged by Analyzer 0 % (0-5); Neutrophil # 9.25 X10^3/uL (2.7-7.7); Neutrophil % 83.4 % (47-70); Platelet Count 383 K/mm3 (150-450); RBC Distribution Width CV 13.1 % (11.6-14.6); RBC Distribution Width SD 40.4 fl (35.1-43.9); Red Blood Count 5.43 M/mm3 (4.2-5.4); White Blood Count 11.1 K/mm3 (4.4-11.0)
--- NOTE | 2024-08-24 14:30 | RAD_ITS ---
STUDY: X-RAY CHEST REASON FOR EXAM: Female, 49 years old. Chest pain TECHNIQUE: Single AP portable view of the chest. COMPARISON: None. FINDINGS: EKG electrodes are seen. The lungs are clear and expanded. There is no demonstrated pleural abnormality. Normal size heart. Normal mediastinum and russell. Normal visualized pulmonary arteries. Normal visualized aortic arch and descending thoracic aorta. Normal visualized thoracic spine. Normal visualized ribs, clavicles, and shoulders. There is no demonstrated abnormality of the visualized soft tissue structures of the upper abdomen. RAD/Chest 1 View (Portable) IMPRESSION: Normal x-ray examination of the chest. Electronically Signed: Alexander Acosta MD at 14:50 EDT ,
--- NOTE | 2024-08-24 14:35 | NURSING ---
NO OLD EKGS
[2024-08-24 14:46] LABS: AST(SGOT) 10 U/L (15-37); Alanine Aminotransfer ALT/SGPT 22 U/L (13-56); Albumin, Serum 4.3 g/dL (3.2-5.0); Alkaline Phosphatase 60 U/L (45-117); Anion Gap 9 (5-15); BUN 12 mg/dL (7-18); BUN/Creat Ratio 14.1 RATIO (10-20); Bilirubin, Direct 0.19 mg/dL (0.00-0.30); Calcium,Total 9.7 mg/dL (8.5-10.1); Chloride 106 mmol/L (98-107); Creatinine, Serum 0.85 mg/dL (0.55-1.02); EST Glomerular Filtration Rate 75 mL/min (>60); Est Glom Filt Rate - Afr Amer 91 mL/min (>60); Estimated Creatinine Clearance 101.13 ml/min; Globulin 4.4 g/dL (2.2-4.2); Glucose 95 mg/dL (74-106); Potassium 3.7 mmol/L (3.5-5.1); Protein, Total 8.7 g/dL (6.4-8.2); Sodium Level 138 mmol/L (136-145); Troponin-I HS (w/2H Reflex) < 3 pg/mL (3.0-54.0)
[2024-08-24 14:55] LABS: Bacteria 0 SEEN /hpf (None Seen); Mucous, Urine 0 SEEN /hpf (<or=2+); Red Blood Cells-Urine 0 SEEN /hpf (0-5); White Blood Cells 0 SEEN /hpf (0-5)
[2024-08-24 14:56] LABS: Color, Urine Straw (Yellow); Glucose, Dipstick Normal (Normal); Ketone-Dipstick 15 mg/dl (Negative); Leukocyte Esterase-Dipstick Negative /ul (Negative); Nitrite-Dipstick Negative (Negative); Occult Blood-Urine Negative /ul (Negative); Protein-Dipstick Negative (Negative); Urine Bilirubin Dipstick Negative (Negative); Urine Clarity Clear (Clear); Urine Urobilinogen Normal (Normal)
[2024-08-24 15:03] LABS: Squamous Epithelial Cells - UA 0-5 SEEN /hpf (5-10)
[2024-08-24 15:19] VITALS: BP 177/109
[2024-08-24 16:22] LABS: Reflex Troponin-HS? (from REC) Y
[2024-08-24 16:50] VITALS: BP 174/120; PULSE 81; RESP 16; TEMP 36.6; O2SAT 99
== END 2024-08-24 16:51 | disposition home or self-care (01) ==
PROVIDERS: Emergency Provider Emergency Medicine; PCP Family Medicine; Referring Provider Emergency Medicine; Visit Provider Emergency Medicine
DX: I10 Essential (primary) hypertension (principal); F41.9 Anxiety disorder, unspecified; Z79.899 Other long term (current) drug therapy
CPT/HCPCS: 71045; 80048; 80076; 81001; 84484; 85025; 93005; 99284; A4216